=== PATIENT | female | born 1950 | race Caucasian/White ===

== ENCOUNTER → 2016-07-28 16:32 | Outpatient (CLI) | payer MEDICARE ==
[2013-09-03 09:36] VITALS: BMI 23.2
[~2016-07-28 16:32] MED LIST: ATENOLOL25 MG NG; BENADRYL25 MG PO; CALCIUM 600+D T1 TA1 PO; ESTRACE1 MG PO; FEXOFENADINE HC60 MG PO; FLUTICASONE PRO16 GM NS; GEMFIBROZIL600 MG PO; MULTI-DAY VITAM1 TAB PO; NEURONTIN 300300 MG PO; NORCO 10/325 TA1 TA1 PO; NORCO 5/325 TAB1 TA1 PO; PRAVACHOL40 MG PO; PRINIVIL20 MG PO; PROTONIX40 MG PO; TRIGLIDE160 MG PO
[2016-07-28 18:51] LABS: LDL-HDL RATIO 5.3 ratio (1.5-3.5)
== END | disposition home or self-care (01) ==
LOC: D.LABREF 16:32
PROVIDERS: Internal Medicine Cardiovascular Disease
DX: E78.5 Hyperlipidemia, unspecified (principal)

== ENCOUNTER → 2016-08-23 07:39 | Outpatient (CLI) | payer MEDICARE ==
[2013-09-03 09:36] VITALS: BMI 23.2
== END | disposition home or self-care (01) ==
LOC: D.CT 07:39
DX: R51 Headache (principal)

== ENCOUNTER 2016-10-08 08:53 | Emergency (ER) | payer MEDICARE ==
[2013-09-03 09:36] VITALS: BMI 23.2
[2016-10-08 10:57] LABS: APPEARANCE HAZY (CLEAR); BILIRUBIN NEGATIVE (NEGATIVE); COLOR YELLOW (YELLOW); GLUCOSE NEGATIVE (NEGATIVE); KETONE NEGATIVE (NEGATIVE); LEUKOCYTE ESTERASE NEGATIVE (NEGATIVE); NITRITE NEGATIVE (NEGATIVE); PROTEIN NEGATIVE (NEGATIVE); UROBILINOGEN NORMAL (NORMAL)
[2016-10-08 11:20] LABS: BASOPHILS 0.1 % (0-2); EOSINOPHILS 0.3 % (0-7); HEMATOCRIT 39.4 % (36.0-48.0); IMMATURE GRANULOCYTES 0.5 % (0-5); LYMPHOCYTES 8.9 % (15-50); MCH 30.3 pg (26.0-34.0); MCV 91.8 fL (80.0-100.0); MEAN PLATELET VOLUME 9.3 fL (7.4-10.4); MONOCYTES 6.8 % (2-11); NEUTROPHILS 83.4 % (40-80); PLATELET COUNT 192 10x3/uL (130-400); RBC 4.29 10x6/uL (4.00-5.40); WBC 15.5 10x3/uL (4.8-10.8)
[2016-10-08 11:30] LABS: APTT 25.6 SECONDS (22.8-39.4); INR 1.06 (0.85-1.17); PROTIME 13.7 SECONDS (11.6-15.0)
[2016-10-08 11:31] LABS: D-DIMER-QUANTITATIVE 0.63 ug/mLFEU (0.20-0.54)
[2016-10-08 11:37] LABS: ALKALINE PHOSPHATASE 30 U/L (46-116); ALT (SGPT) 15 U/L (10-68); CALC OSMOLALITY 272 mosm/kg (275-300); CALCIUM 8.1 mg/dL (8.5-10.1); CARBON DIOXIDE 23.4 mmol/L (21.0-32.0); CHLORIDE - SERUM 105 mmol/L (98-107); CREATININE - SERUM 1.2 mg/dL (0.6-1.3); GLUCOSE 93 mg/dL (74-106); PROTEIN - SERUM 6.2 g/dL (6.4-8.2); SODIUM 137 mmol/L (136-145); UREA NITROGEN 11 mg/dL (7-18); eGFR NON AFRICAN AMERICAN 47 mL/min (90-120)
[2016-10-08 11:45] LABS: CREATINE KINASE 32 UL (21-215); TROPONIN-I < 0.017 ng/mL (0.000-0.060)
== END 2016-10-08 14:16 | disposition home or self-care (01) ==
LOC: D.ER 08:53
PROVIDERS: Emergency Medicine
DX: R05 Cough (principal); J20.9 Acute bronchitis, unspecified; R07.9 Chest pain, unspecified; I10 Essential (primary) hypertension; E78.5 Hyperlipidemia, unspecified

== ENCOUNTER → 2016-11-01 16:05 | Outpatient (CLI) | payer MEDICARE ==
[2013-09-03 09:36] VITALS: BMI 23.2
== END | disposition home or self-care (01) ==
LOC: D.MAMMO 10-11 08:45
DX: Z12.31 Encounter for screening mammogram for malignant neoplasm of breast (principal)

== ENCOUNTER → 2016-12-08 14:45 | Outpatient (CLI) | payer MEDICARE ==
[2013-09-03 09:36] VITALS: BMI 23.2
== END | disposition home or self-care (01) ==
LOC: D.MAMMO 09:30
DX: N63 Unspecified lump in breast (principal)

== ENCOUNTER 2018-09-18 08:43 | Emergency (ER) | payer MEDICARE ==
[~2018-09-18] VITALS: Ht 160 cm; Wt 59.5 kg
[2018-09-18 08:48] VITALS: Ht 160 cm; Wt 59.5 kg
[2018-09-18] MEDS ORDERED: TENORMIN25 MG PO (08:51)
[2018-09-18] MEDS ORDERED: FENOFIBRATE160 MG PO (08:51)
[2018-09-18] MEDS ORDERED: ESTRACE2 MG PO (08:51)
[2018-09-18] MEDS ORDERED: ZYRTEC10 MG PO (08:52)
[2018-09-18] MEDS ORDERED: STERAPRED DS 1010 MG PO (09:28)
[2018-09-18 09:58] VITALS: BP 153/46
== END 2018-09-18 09:59 | disposition home or self-care (01) ==
LOC: D.ER 08:43
DX: T42.6X5A Adverse effect of other antiepileptic and sedative-hypnotic drugs, initial encounter (principal); Y92.019 Unspecified place in single-family (private) house as the place of occurrence of the external cause

== ENCOUNTER 2018-09-22 09:00 | Outpatient (CLI) | payer MEDICARE ==
[2018-09-18 08:48] VITALS: BMI 23.2
[~2018-09-22 09:00] MED LIST changes: +ESTRACE2 MG PO; +FENOFIBRATE160 MG PO; +STERAPRED DS 1010 MG PO; +TENORMIN25 MG PO; +ZYRTEC10 MG PO
== END 2018-09-22 10:00 | disposition home or self-care (01) ==
LOC: D.MAMMO
PROVIDERS: ATTEND Family Medicine
DX: N64.4 Mastodynia (principal)

== ENCOUNTER 2018-09-25 11:33 | Emergency (ER) | payer MEDICARE ==
[~2018-09-25] VITALS: Ht 160 cm; Wt 61.4 kg
[2018-09-25 12:10] VITALS: Ht 160 cm; Wt 61.4 kg
[2018-09-25 13:23] LABS: BASOPHILS 0 % (0-2); EOSINOPHILS 0 % (0-7); HEMATOCRIT 40.3 % (36.0-48.0); IMMATURE GRANULOCYTES 0.5 % (0-5); LYMPHOCYTES 10.9 % (15-50); MCH 31.2 pg (26.0-34.0); MCHC 34.7 g/dL (31.0-37.0); MCV 89.8 fL (80.0-100.0); MEAN PLATELET VOLUME 9.3 fL (7.4-10.4); MONOCYTES 8.8 % (2-11); NEUTROPHILS 79.8 % (40-80); RBC 4.49 10x6/uL (4.00-5.40); RDW 14.1 % (11.5-14.5); WBC 11.6 10x3/uL (4.8-10.8)
[2018-09-25 13:24] LABS: PLATELET COUNT 263 10x3/uL (130-400)
[2018-09-25 13:49] LABS: ALBUMIN 3.6 g/dL (3.4-5.0); ANION GAP 12.4 mmol/L (8-16); BILIRUBIN - TOTAL 0.55 mg/dL (0.2-1.3); CALCIUM 9.2 mg/dL (8.5-10.1); CARBON DIOXIDE 26.7 mmol/L (21.0-32.0); POTASSIUM - SERUM 4.1 mmol/L (3.5-5.1); PROTEIN - SERUM 6.6 g/dL (6.4-8.2)
[2018-09-25 14:12] VITALS: BP 184/62
== END 2018-09-25 14:13 | disposition home or self-care (01) ==
LOC: D.ER 11:33
PROVIDERS: Family Medicine
DX: L29.9 Pruritus, unspecified (principal); M25.561 Pain in right knee; Z96.651 Presence of right artificial knee joint

== ENCOUNTER 2019-02-10 18:56 | Inpatient (IN) | payer MEDICARE ==
[~2019-02-10] VITALS: Ht 160 cm; Wt 49.4 kg
[2019-02-10] MEDS ORDERED: STOOL SOFTENER100 M1 PO (19:07)
[2019-02-10 19:30] LABS: APPEARANCE CLEAR (CLEAR); BILIRUBIN NEGATIVE (NEGATIVE); COLOR YELLOW (YELLOW); GLUCOSE NEGATIVE (NEGATIVE); KETONE NEGATIVE (NEGATIVE); NITRITE NEGATIVE (NEGATIVE); PROTEIN NEGATIVE (NEGATIVE); SPECIFIC GRAVITY 1.015 (1.005-1.020)
[2019-02-10 19:35] LABS: BASOPHILS 0.3 % (0-2); EOSINOPHILS 1.5 % (0-7); HEMATOCRIT 40.8 % (36.0-48.0); HEMOGLOBIN 13.3 g/dL (12-16); IMMATURE GRANULOCYTES 0.2 % (0-5); LYMPHOCYTES 40.9 % (15-50); MCH 30.1 pg (26.0-34.0); MCHC 32.6 g/dL (31.0-37.0); MCV 92.3 fL (80.0-100.0); MEAN PLATELET VOLUME 10.4 fL (7.4-10.4); MONOCYTES 7.7 % (2-11); NEUTROPHILS 49.4 % (40-80); PLATELET COUNT 218 10x3/uL (130-400); RBC 4.42 10x6/uL (4.00-5.40); WBC 5.9 10x3/uL (4.8-10.8)
[2019-02-10 19:54] LABS: ALBUMIN 3.4 g/dL (3.4-5.0); ALKALINE PHOSPHATASE 86 U/L (46-116); ALT (SGPT) 97 U/L (10-68); BILIRUBIN - TOTAL 0.42 mg/dL (0.2-1.3); CALC OSMOLALITY 285 mosm/kg (275-300); CALCIUM 9.3 mg/dL (8.5-10.1); CHLORIDE - SERUM 107 mmol/L (98-107); CREATININE - SERUM 0.9 mg/dL (0.6-1.3); GLUCOSE 98 mg/dL (74-106); POTASSIUM - SERUM 3.9 mmol/L (3.5-5.1); PROTEIN - SERUM 6.2 g/dL (6.4-8.2); SODIUM 144 mmol/L (136-145); UREA NITROGEN 11 mg/dL (7-18); eGFR NON AFRICAN AMERICAN 66 mL/min (90-120)
[2019-02-10 19:59] LABS: LIPASE 10299 U/L (73-393); TROPONIN-I < 0.017 ng/mL (0.000-0.060)
[2019-02-10 20:02] LABS: AMYLASE - SERUM 1226 U/L (25-115)
[2019-02-10 21:00] VITALS: BP 141/48
--- NOTE | 2019-02-11 00:15 | NUR ---
PT ARRIVED TO FLOOR VIA WHEELCHAIR. ASSISTED PT IN AMBULATING TO BED. PT HAS GENERALIZED WEAKNESS. UNABLE TO WALK LONG DISTANCES D/T NEUROPATHY. STATES SHE IS SEEING NEUROLOGIST AT [facility]. PAIN IN ABD 12/09. TENDER TO TOUCH. BOWEL SOUNDS HYPERACTIVE. WILL GIVE SCHEDULED PAIN MED ORDERED, SEE MAR. IV RIGHT FA INFUSING NS @ 150. INFORMED PT SHE IS NPO FOR POSSIBLE SX, VERBALIZED UNDERSTANDING. DENIES OTHER NEEDS AT THIS TIME. MARIAN ON. CL IN REACH, WILL CTM
[2019-02-11 01:05] VITALS: BMI 19.3
[2019-02-11 04:15] VITALS: BP 114/47
[2019-02-11 05:35] LABS: APTT 23.6 SECONDS (22.8-39.4); INR 1.07 (0.85-1.17); PROTIME 13.4 SECONDS (11.6-15.0)
[2019-02-11 06:41] LABS: ALBUMIN 2.6 g/dL (3.4-5.0); ALKALINE PHOSPHATASE 59 U/L (46-116); BILIRUBIN - TOTAL 0.29 mg/dL (0.2-1.3); CALC OSMOLALITY 289 mosm/kg (275-300); CALCIUM 8.1 mg/dL (8.5-10.1); CARBON DIOXIDE 22.9 mmol/L (21.0-32.0); CHLORIDE - SERUM 113 mmol/L (98-107); GLUCOSE 79 mg/dL (74-106); POTASSIUM - SERUM 4.1 mmol/L (3.5-5.1); PROTEIN - SERUM 4.9 g/dL (6.4-8.2); SODIUM 147 mmol/L (136-145); UREA NITROGEN 10 mg/dL (7-18)
[2019-02-11 06:43] LABS: ALT (SGPT) 60 U/L (10-68); CREATININE - SERUM 0.6 mg/dL (0.6-1.3); LIPASE 2583 U/L (73-393); eGFR NON AFRICAN AMERICAN > 90 mL/min (90-120)
[2019-02-11 06:44] LABS: AMYLASE - SERUM 405 U/L (25-115)
[2019-02-11 08:54] VITALS: BP 119/36
--- NOTE | 2019-02-11 10:15 | NUR ---
PATIENT AWAKE LAYING ON BACK IN BED WATCHING TV. WANTS TO KNOW WHEN THE SURGERY WILL BE. I INFORMED HER THAT THE SURGEON WILL HAVE TO SEE HER FIRST AND THEN WE WILL FIND OUT. CL IN REACH. ROBYN.
[2019-02-11 10:58] LABS: BASOPHILS 0.5 % (0-2); HEMATOCRIT 33.7 % (36.0-48.0); HEMOGLOBIN 10.7 g/dL (12-16); IMMATURE GRANULOCYTES 0.3 % (0-5); LYMPHOCYTES 33.3 % (15-50); MCH 29.5 pg (26.0-34.0); MCHC 31.8 g/dL (31.0-37.0); MCV 92.8 fL (80.0-100.0); MEAN PLATELET VOLUME 10.1 fL (7.4-10.4); MONOCYTES 9.3 % (2-11); NEUTROPHILS 54.6 % (40-80); RBC 3.63 10x6/uL (4.00-5.40)
[2019-02-11 11:09] LABS: PLATELET COUNT 146 10x3/uL (130-400)
[2019-02-11 11:22] LABS: CKMB 0.1 U/L (0.0-3.6); CREATINE KINASE 19 UL (21-215); TROPONIN-I < 0.017 ng/mL (0.000-0.060)
[2019-02-11 13:13] VITALS: BP 130/34
--- NOTE | 2019-02-11 13:51 | NUR ---
PATIENT IN MRI.
[2019-02-11 16:36] VITALS: BP 118/39
[2019-02-11 17:01] LABS: CKMB 0.5 U/L (0.0-3.6); CREATINE KINASE 21 UL (21-215)
[2019-02-11 17:20] LABS: TROPONIN-I < 0.017 ng/mL (0.000-0.060)
[2019-02-11 20:31] VITALS: BP 135/45
[2019-02-11 23:31] LABS: CKMB 0.4 U/L (0.0-3.6); CREATINE KINASE 21 UL (21-215)
[2019-02-11 23:33] LABS: TROPONIN-I < 0.017 ng/mL (0.000-0.060)
[2019-02-12] VITALS (11 sets, daily range): BP systolic 123–151; BP diastolic 50–74; Ht 160 cm; Wt 49.4 kg
[2019-02-12 05:43] LABS: BASOPHILS 0.5 % (0-2); EOSINOPHILS 4.7 % (0-7); HEMATOCRIT 33.8 % (36.0-48.0); HEMOGLOBIN 10.8 g/dL (12-16); LYMPHOCYTES 34.3 % (15-50); MCH 29.6 pg (26.0-34.0); MCV 92.6 fL (80.0-100.0); MEAN PLATELET VOLUME 10.9 fL (7.4-10.4); MONOCYTES 10.2 % (2-11); NEUTROPHILS 50.3 % (40-80); PLATELET COUNT 164 10x3/uL (130-400); RBC 3.65 10x6/uL (4.00-5.40); RDW 13.9 % (11.5-14.5)
[2019-02-12 05:54] LABS: ALBUMIN 2.4 g/dL (3.4-5.0); ALKALINE PHOSPHATASE 48 U/L (46-116); BILIRUBIN - TOTAL 0.26 mg/dL (0.2-1.3); CALCIUM 8.4 mg/dL (8.5-10.1); CARBON DIOXIDE 28.2 mmol/L (21.0-32.0); CHLORIDE - SERUM 110 mmol/L (98-107); GLUCOSE 108 mg/dL (74-106); LIPASE 219 U/L (73-393); MAGNESIUM - SERUM 1.7 mg/dL (1.8-2.4); POTASSIUM - SERUM 4.4 mmol/L (3.5-5.1); PROTEIN - SERUM 4.8 g/dL (6.4-8.2); SODIUM 142 mmol/L (136-145)
[2019-02-12 05:56] LABS: ALT (SGPT) 42 U/L (10-68); AMYLASE - SERUM 88 U/L (25-115); CALC OSMOLALITY 280 mosm/kg (275-300); CREATININE - SERUM 0.8 mg/dL (0.6-1.3); UREA NITROGEN 5 mg/dL (7-18); eGFR NON AFRICAN AMERICAN 75 mL/min (90-120)
--- NOTE | 2019-02-12 07:45 | NUR ---
PT RESTING IN BED RESP EVEN AND UNLABORED. REPORTS PAIN 6/10 AT THIS TIME. DISCUSSED WITH PT NEXT TIME PAIN MEDICATIONS DUE. PT VOICES UNDERSTANDING. IV TO RIGHT FOREARM WITH D5LR WITH 20MEQ KCL @ 125ML/HR, PROCALAMINE @ 50ML/HR INFUSING VIA PUMP. SITE WITHOUT REDNESS OR EDEMA. VOICES BEING NPO SINCE MIDNIGHT FOR UPCOMING PROCEDURE. DENIES FURTHER NEEDS AT THIS TIME. CL WITHIN REACH. ENCOURAGED TO CALL WITH NEEDS. CONTINUE POC
[2019-02-12] MEDS ORDERED: HYDROCODON-ACE1 EAC7 PO (12:30)
--- NOTE | 2019-02-12 13:27 | NUR ---
PT RECIEVED FROM RECOVERY VIA BED. ALERT AND ORIENTED. RESP EVEN AND UNLABORED. PT DENIES PAIN AT THIS TIME. 4 LAP SITES TO ABDOMEN C/D/I. CL WITHIN REACH. WILL CONTINUE TO MONITOR.
--- NOTE | 2019-02-12 19:25 | NUR ---
LYING IN BED. ALERT AND ORIENTED X4. C/O PAIN IN ABD 4. HAS SCHEDULED DILAUDID FOR 2099. LAP SITES X4 NOTED TO ABD WITH STERI STRIPS. OLD DRAINAGE NOTED TO UMBILICAL REGION. RESP NONLABORED. SKIN IS PALE. D5LR WITH 20 MEQ KCL INFUSING @ 75 MLHR IN RT FOREARM. SR ELEVATED X2. CL IN REACH.
--- NOTE | 2019-02-13 00:15 | NUR ---
IV INFILTRATED IN RT FOREARM. IV CATH REMOVED. MINIMAL SWELLING NOTED. ATTEMPTED X1 TO RESTART WITH 22G WITHOUT SUCCESS.
[2019-02-13 00:40] VITALS: BP 140/64
--- NOTE | 2019-02-13 01:26 | NUR ---
IV RESTARTED WITH 22G TO RT WRIST AT THIS TIME. PT SILVIA WELL. DILAUDID SCHEDULED DOSE GIVEN AT THIS TIME.
[2019-02-13 04:00] VITALS: BP 148/56
[2019-02-13 05:39] LABS: BASOPHILS 0.2 % (0-2); EOSINOPHILS 0.1 % (0-7); HEMOGLOBIN 11.2 g/dL (12-16); IMMATURE GRANULOCYTES 0.1 % (0-5); LYMPHOCYTES 12.4 % (15-50); MCH 29.7 pg (26.0-34.0); MCHC 32.9 g/dL (31.0-37.0); MEAN PLATELET VOLUME 10.8 fL (7.4-10.4); MONOCYTES 7.3 % (2-11); NEUTROPHILS 79.9 % (40-80); PLATELET COUNT 195 10x3/uL (130-400); RBC 3.77 10x6/uL (4.00-5.40); RDW 13.6 % (11.5-14.5)
[2019-02-13 05:43] LABS: MCV 90.2 fL (80.0-100.0); WBC 9.1 10x3/uL (4.8-10.8)
[2019-02-13 05:47] LABS: ALBUMIN 2.7 g/dL (3.4-5.0); ALKALINE PHOSPHATASE 90 U/L (46-116); BILIRUBIN - TOTAL 1.79 mg/dL (0.2-1.3); CALC OSMOLALITY 282 mosm/kg (275-300); CALCIUM 8.9 mg/dL (8.5-10.1); CARBON DIOXIDE 26.4 mmol/L (21.0-32.0); CHLORIDE - SERUM 109 mmol/L (98-107); CREATININE - SERUM 0.6 mg/dL (0.6-1.3); GLUCOSE 125 mg/dL (74-106); MAGNESIUM - SERUM 1.9 mg/dL (1.8-2.4); POTASSIUM - SERUM 4.3 mmol/L (3.5-5.1); SODIUM 143 mmol/L (136-145); UREA NITROGEN 5 mg/dL (7-18); eGFR NON AFRICAN AMERICAN > 90 mL/min (90-120)
[2019-02-13 05:50] LABS: ALT (SGPT) 124 U/L (10-68); LIPASE 7829 U/L (73-393)
[2019-02-13 05:51] LABS: AMYLASE - SERUM 779 U/L (25-115)
--- NOTE | 2019-02-13 06:04 | NUR ---
NOTIFIED RADHA GOODMAN OF [facility]. NO NEW ORDERS. STATES HE WILL NOTIFY RADHA VALENCIA THIS AM.
--- NOTE | 2019-02-13 07:13 | NUR ---
ALERT AND ORIENTED. LUNGS CLEAR BILATERALLY IN ALL CARBALLO. HEART SOUNDS S1 AND S2 HEARD IN ALL CARBALLO. BOWEL SOUNDS ACTIVE X 4. LAP SITES X 4 C/D/I. SKIN OTHERWISE INTACT WITHOUT REDNESS. IV TO RIGHT WRIST PATENT WITHOUT REDNESS. DENIES PAIN. DENIES NEEDS. BED LOW. CALL SHEN AND PERSONAL ITEMS IN REACH. WILL CONTINUE TO MONITOR.
[2019-02-13 08:29] VITALS: BP 143/67
--- NOTE | 2019-02-13 08:30 | NUR ---
PATIENT STATES IS DISCHARGING TODAY. EDUCATION PROVIDED ON NEED TO GET UP AND OOB BEFORE LEAVING. VERBALIZED UNDERSTANDING.
--- NOTE | 2019-02-13 12:00 | NUR ---
RESTING IN BED. REQUESTED AND GIVEN PRN ZOFRAN FOR NAUSEA. STATES PAIN 8/10. GIVEN SCHEDULED DILAUDID. REQUESTED SCDS BE REMOVED SINCE GETTING LOVENOX NOW. DENIES FURTHER NEEDS. WILL CONTINUE TO MONITOR.
[2019-02-13 12:38] VITALS: BP 128/74
--- NOTE | 2019-02-13 13:26 | NUR ---
SPOKE WITH DR HOBBS WHO STATES START CPM AFTER DINNER AT 50 FLEXION AND INCREASE 5-10 QDAY TOLERATION. EXTENSION AT ZERO.
--- NOTE | 2019-02-13 14:23 | NUR ---
RESTING IN BED. DENIES NEEDS. WILL CONTINUE TO MONITOR.
--- NOTE | 2019-02-13 14:37 | MORECARE ---
CASE MANAGEMENT DISCHARGE SUMMARY PATIENT: ALEK GASCA UNIT: [id number] ADM DATE: 02/10/19 AGE: 68 : 48 SEX: F ROOM/BED: D.9138 AUTHOR: [email or web address] PHYSICIAN: REFERRING PHYSICIAN: ALVARO WATERS MD DATE OF SERVICE: 02/13/19 Discharge Plan Patient Name: ALEK GASCA Facility: [facility]:[place] : 1950 Planned Disposition: Home Health Service Anticipated Discharge Date: Discharge Date: Expected LOS: Initial Reviewer: [id number] Initial Review Date: 02/10/2019 Generated: 02/13/19 3:37 pm DCPIA - Discharge Planning Initial Assessment Updated by [email or web address]: Dolores Garibay on 02/13/19 2:34 pm * Is the patient Alert and Oriented? Yes * How many steps to enter\exit or inside your home? * PCP PRIYA * Pharmacy [facility] * Preadmission Environment Home Alone * ADLs Partial Dependent * Partial ADLs (Assistance needed) Bathing * Equipment Elevated [place] Seat Rolling Walker Shower Chair * List name and contact numbers for known caregivers / representatives who currently or will assist patient after discharge: MICHELLE (BROTHER) [phone] * Verbal permission to speak to the caregivers and representatives has been obtained from the patient. N/A * Community resources currently utilized Home Health * Please name any agencies selected above. [facility]ALKING WITH [facility] * Additional services required to return to the preadmission environment? Yes * Can the patient safely return to the preadmission environment? Yes * Has this patient been hospitalized within the prior 30 days at any hospital? Yes Coverage Notice Reviewer: [email or web address] Silvia Garibay Notice Issued Date-Time: 02/13/2019 14:15 Notice Type: IM Discharge Notice Notice Delivered To: Patient Relationship to Patient: Battery Hand Name: Delivery Method: HAND - Hand Delivered Adrianne Days: Prior Verbal Notification: Recipient Understood Notice: Yes Recipient Signature: Yes Med Rec Note Co-signed by Attending: Coverage Notice Comment: Reviewer: [id number] Silvia Garibay Notice Issued Date-Time: 02/13/2019 14:15 Notice Type: Patient Choice Letter Notice Delivered To: Patient Relationship to Patient: Battery Hand Name: Delivery Method: HAND - Hand Delivered Adrianne Days: Prior Verbal Notification: Recipient Understood Notice: Yes Recipient Signature: Yes Med Rec Note Co-signed by Attending: Coverage Notice Comment: SHERICE FOR ANK[facility] Patient Name: ALEK GASCA Page 15106 at 1437 All edits/amendments must be made on the electronic document DICTATION DATE: 02/13/191436 SOFTWARE TEST TECHNICIAN: CONSTANTINE 02/13/191436 RPT#: [id number] DC DATE: STATUS: ADM IN [facility] [address] [place] [address] END OF REPORT
--- NOTE | 2019-02-13 14:45 | MORECARE ---
CASE MANAGEMENT DISCHARGE SUMMARY PATIENT: ALEK GASCA UNIT: [id number] ADM DATE: 02/10/19 AGE: 68 : 48 SEX: F ROOM/BED: D.8499 AUTHOR: JOSE L GRULLON PHYSICIAN: REFERRING PHYSICIAN: ALVARO WATERS MD DATE OF SERVICE: 02/13/19 Discharge Plan Patient Name: ALEK GASCA Facility: [facility]:[place] : 1950 Planned Disposition: Home Health Service Anticipated Discharge Date: Discharge Date: Expected LOS: Initial Reviewer: [email or web address] Initial Review Date: 02/10/2019 Generated: 02/13/19 3:44 pm Comments DCP- Discharge Planning Updated by [email or web address]: Dolores Garibay on 02/13/19 1:[address] Patient Name: ALEK GASCA Admission Status: ER Accout number: [id number] Admission Date: 02-10-2019 : 1950 Admission Diagnosis: Attending: ALVARO WATERS Current LOS: 3 Anticipated DC Date: Planned Disposition: Home Health Service Primary Insurance: MEDICARE A & B Discharge Planning Comments: CM met with patient to complete initial dc planning assessment. CM educated patient on the CM role and verbal consent given by patient to complete assessment. Patient lives at home by herself. She stated that her neighbor comes over and helps with her baths. At discharge patient plans to return home and feels this is a safe discharge. Her brother will be her pizza delivery driver home. CM discussed availability of home health, rehab services, and medical equipment. She is current with [facility]. She has a walker, elevated toilet seat and shower chair at home. She also stated that she is currently talking with [facility] to get help. [facility] served and explained and SHERICE with [facility] signed and placed in chart. Patient denied known discharge needs at this time. CM will continue to follow and will assist as needed with dc plans/needs. Development Vice President: Dolores Garibay DCPIA - Discharge Planning Initial Assessment Updated by [email or web address]: Dolores Garibay on 02/13/19 2:34 pm * Is the patient Alert and Oriented? Yes * How many steps to enter\exit or inside your home? * PCP PRIYA * Pharmacy [facility] * Preadmission Environment Home Alone * ADLs Partial Dependent * Partial ADLs (Assistance needed) Bathing * Equipment Elevated [place] Seat Rolling Walker Shower Chair * List name and contact numbers for known caregivers / representatives who currently or will assist patient after discharge: MICHELLE (BROTHER) [phone] * Verbal permission to speak to the caregivers and representatives has been obtained from the patient. N/A * Community resources currently utilized Home Health * Please name any agencies selected above. [facility] TALKING WITH [facility] * Additional services required to return to the preadmission environment? Yes * Can the patient safely return to the preadmission environment? Yes * Has this patient been hospitalized within the prior 30 days at any hospital? Yes Coverage Notice Reviewer: [email or web address] Silvia Garibay Notice Issued Date-Time: 02/13/2019 14:15 Notice Type: IM Discharge Notice Notice Delivered To: Patient Relationship to Patient: Review Rn Name: Delivery Method: HAND - Hand Delivered Adrianne Days: Prior Verbal Notification: Recipient Understood Notice: Yes Recipient Signature: Yes Med Rec Note Co-signed by Attending: Coverage Notice Comment: Reviewer: [id number] Silvia Garibay Notice Issued Date-Time: 02/13/2019 14:15 Notice Type: Patient Choice Letter Notice Delivered To: Patient Relationship to Patient: Review Rn Name: Delivery Method: HAND - Hand Delivered Adrianne Days: Prior Verbal Notification: Recipient Understood Notice: Yes Recipient Signature: Yes Med Rec Note Co-signed by Attending: Coverage Notice Comment: SHERICE FOR ANKIT Last DP export: 02/13/19 1:37 Patient Name: ALEK GASCA Page 23217 at 1445 All edits/amendments must be made on the electronic document DICTATION DATE: 02/13/191443 BLANKET CUTTER HAND: CONSTANTINE 02/13/19 1444 RPT#: [id number] DC DATE: STATUS: ADM IN [facility] [address] [place] [address] END OF REPORT
--- NOTE | 2019-02-13 15:25 | NUR ---
RESTING IN BED. DENIES NEEDS. WILL CONTINUE TO MONITOR.
--- NOTE | 2019-02-13 16:27 | NUR ---
BLISTER PACKAGING MACHINE OPERATOR INITIATED PER REQUEST.
--- NOTE | 2019-02-13 18:38 | NUR ---
RESTING IN BED. REQUESTED AND GIVEN BEDPAN. REQUESTED AND GIVEN PRN NORCO. DENIES FURTHER NEEDS. BED LOW. CALL SHEN AND PERSONAL ITEMS IN REACH.
--- NOTE | 2019-02-13 19:50 | NUR ---
LYING IN BED. ASSISTED ONTO BED GOMEZ TO VOID. DENIES PAIN. LAP SITE X4 NOTED TO ABD WITH STERISTRIPS INTACT. PASSING FLATUS, BUT NO BM. BRUISES NOTED TO BUE. SCDS IN USE BILAT. STATES SHE HAS BEEN NAUSEATED TODAY. D5LR WITH 20 MEQ KCL INFUSING @ 75 MLHR IN RT WRIST WITHOUT DIFF. RESP EVEN AND NONLABORED. NO DISTRESS. CL IN REACH.
[2019-02-13 21:27] VITALS: BP 140/61
--- NOTE | 2019-02-14 00:45 | NUR ---
HASNT BEEN ASLEEP YET TONIGHT. ON BEDPAN FREQUENTLY TO VOID. CL IN REACH.
[2019-02-14 01:14] VITALS: BP 130/70
[2019-02-14 05:15] VITALS: BP 154/74
[2019-02-14 05:31] LABS: BASOPHILS 0.2 % (0-2); IMMATURE GRANULOCYTES 0.2 % (0-5); LYMPHOCYTES 20.1 % (15-50); MCH 29.6 pg (26.0-34.0); MCHC 32.4 g/dL (31.0-37.0); MCV 91.6 fL (80.0-100.0); MEAN PLATELET VOLUME 10.5 fL (7.4-10.4); MONOCYTES 10.9 % (2-11); NEUTROPHILS 66.6 % (40-80); PLATELET COUNT 181 10x3/uL (130-400); RBC 3.71 10x6/uL (4.00-5.40); RDW 14.2 % (11.5-14.5)
[2019-02-14 05:40] LABS: WBC 6.1 10x3/uL (4.8-10.8)
[2019-02-14 06:11] LABS: ALBUMIN 2.4 g/dL (3.4-5.0); ALKALINE PHOSPHATASE 105 U/L (46-116); BILIRUBIN - TOTAL 2.17 mg/dL (0.2-1.3); CALC OSMOLALITY 276 mosm/kg (275-300); CALCIUM 8.1 mg/dL (8.5-10.1); CARBON DIOXIDE 27.5 mmol/L (21.0-32.0); CHLORIDE - SERUM 108 mmol/L (98-107); CREATININE - SERUM 0.7 mg/dL (0.6-1.3); GLUCOSE 81 mg/dL (74-106); MAGNESIUM - SERUM 1.7 mg/dL (1.8-2.4); POTASSIUM - SERUM 4.2 mmol/L (3.5-5.1); PROTEIN - SERUM 4.6 g/dL (6.4-8.2); SODIUM 141 mmol/L (136-145); UREA NITROGEN 4 mg/dL (7-18); eGFR NON AFRICAN AMERICAN 88 mL/min (90-120)
[2019-02-14 06:59] LABS: ALT (SGPT) 221 U/L (10-68); AMYLASE - SERUM 357 U/L (25-115); LIPASE 2684 U/L (73-393)
--- NOTE | 2019-02-14 08:30 | NUR ---
PATIENT ASSISTED WITH BEDPAN. NO FURTHER NEEDS AT THIS TIME. CL IN REACH. WCTM
[2019-02-14 09:04] VITALS: BP 111/57
[2019-02-14 10:11] LABS: INR 1.32 (0.85-1.17); PROTIME 15.9 SECONDS (11.6-15.0)
--- NOTE | 2019-02-14 11:28 | NUR ---
PATIENT HAD A NOSEBLEED. RESOLVED ON ITS OWN HOLDING PRESSURE. CL IN REACH. NO CONCERNS AT THIS TIME.
--- NOTE | 2019-02-14 11:29 | MORECARE ---
CASE MANAGEMENT DISCHARGE SUMMARY PATIENT: ALEK GASCA UNIT: [id number] ADM DATE: 02/10/19 AGE: 68 : 48 SEX: F ROOM/BED: D.3855 AUTHOR: JOSE L GRULLON PHYSICIAN: REFERRING PHYSICIAN: ALVARO WATERS MD DATE OF SERVICE: 02/14/19 Discharge Plan Patient Name: ALEK GASCA Facility: [facility]:[place] : 1950 Planned Disposition: Home Health Service Anticipated Discharge Date: Discharge Date: Expected LOS: Initial Reviewer: [id number] Initial Review Date: 02/10/2019 Generated: 02/14/19 12:28 pm Comments DCP- Discharge Planning Updated by [id number]: Dolores Garibay on 02/14/19 10:[address] Patient discharging home today. Patient is current with [facility]. Will fax clinicals to them. CM to follow and assist as needed DCP- Discharge Planning Updated by [id number]: Dolores Garibay on 02/13/19 1:[address] Patient Name: ALEK GASCA Admission Status: ER Accout number: [id number] Admission Date: 02-10-2019 : 1950 Admission Diagnosis: Attending: ALVARO WATERS Current LOS: 3 Anticipated DC Date: Planned Disposition: Home Health Service Primary Insurance: MEDICARE A & B Discharge Planning Comments: CM met with patient to complete initial dc planning assessment. CM educated patient on the CM role and verbal consent given by patient to complete assessment. Patient lives at home by herself. She stated that her neighbor comes over and helps with her baths. At discharge patient plans to return home and feels this is a safe discharge. Her brother will be her rental car ferry driver home. CM discussed availability of home health, rehab services, and medical equipment. She is current with [facility]. She has a walker, elevated toilet seat and shower chair at home. She also stated that she is currently talking with [facility] to get help. [facility] served and explained and SHERICE with [facility] signed and placed in chart. Patient denied known discharge needs at this time. CM will continue to follow and will assist as needed with dc plans/needs. Pedicurist: Dolores Garibay DCPIA - Discharge Planning Initial Assessment Updated by [email or web address]: Dolores Garibay on 02/13/19 2:34 pm * Is the patient Alert and Oriented? Yes * How many steps to enter\exit or inside your home? * PCP PRIYA * Pharmacy [facility] * Preadmission Environment Home Alone * ADLs Partial Dependent * Partial ADLs (Assistance needed) Bathing * Equipment Elevated [place] Seat Rolling Walker Shower Chair * List name and contact numbers for known caregivers / representatives who currently or will assist patient after discharge: MICHELLE (BROTHER) [phone] * Verbal permission to speak to the caregivers and representatives has been obtained from the patient. N/A * Community resources currently utilized Home Health * Please name any agencies selected above. [facility] TALKING WITH [facility] * Additional services required to return to the preadmission environment? Yes * Can the patient safely return to the preadmission environment? Yes * Has this patient been hospitalized within the prior 30 days at any hospital? Yes Coverage Notice Reviewer: [id number] Silvia Graibay Notice Issued Date-Time: 02/13/2019 14:15 Notice Type: IM Discharge Notice Notice Delivered To: Patient Relationship to Patient: Composition Molder Name: Delivery Method: HAND - Hand Delivered Adrianne Days: Prior Verbal Notification: Recipient Understood Notice: Yes Recipient Signature: Yes Med Rec Note Co-signed by Attending: Coverage Notice Comment: Reviewer: [id number] Silvia Garibay Notice Issued Date-Time: 02/13/2019 14:15 Notice Type: Patient Choice Letter Notice Delivered To: Patient Relationship to Patient: Composition Molder Name: Delivery Method: HAND - Hand Delivered Adrianne Days: Prior Verbal Notification: Recipient Understood Notice: Yes Recipient Signature: Yes Med Rec Note Co-signed by Attending: Coverage Notice Comment: SHERIEC FOR [facility] Last DP export: 02/13/19 1:45 Patient Name: ALEK GASCA Page 71216 at 1129 All edits/amendments must be made on the electronic document DICTATION DATE: 02/14/19 1128 PLAYER PIANO TECHNICIAN: CONSTANTINE 02/14/19 1128 RPT#: [id number] DC DATE: STATUS: ADM IN [facility] [address] [place] [address] END OF REPORT
[2019-02-14 12:46] VITALS: BP 140/58
--- NOTE | 2019-02-14 13:05 | MORECARE ---
CASE MANAGEMENT DISCHARGE SUMMARY PATIENT: ALEK GASCA UNIT: [id number] ADM DATE: 02/10/19 AGE: 68 : 46 SEX: F ROOM/BED: D.7033 AUTHOR: JOSE L GRULLON PHYSICIAN: REFERRING PHYSICIAN: ALVARO WATERS MD DATE OF SERVICE: 02/14/19 Discharge Plan Patient Name: ALEK GASCA Facility: [facility]:[place] : 1950 Planned Disposition: Home Health Service Anticipated Discharge Date: Discharge Date: Expected LOS: Initial Reviewer: [email or web address] Initial Review Date: 02/10/2019 Generated: 02/14/19 2:05 pm Comments DCP- Discharge Planning Updated by [email or web address]: Dolores Garibay on 02/14/19 10:[address] Patient discharging home today. Patient is current with [facility]. Will fax clinicals to them. CM to follow and assist as needed DCP- Discharge Planning Updated by [email or web address]: Dolores Garibay on 02/13/19 1:[address] Patient Name: ALEK GASCA Admission Status: ER Accout number: [id number] Admission Date: 02-10-2019 : 1950 Admission Diagnosis: Attending: ALVARO WATERS Current LOS: 3 Anticipated DC Date: Planned Disposition: Home Health Service Primary Insurance: MEDICARE A & B Discharge Planning Comments: CM met with patient to complete initial dc planning assessment. CM educated patient on the CM role and verbal consent given by patient to complete assessment. Patient lives at home by herself. She stated that her neighbor comes over and helps with her baths. At discharge patient plans to return home and feels this is a safe discharge. Her brother will be her entry level truck driver home. CM discussed availability of home health, rehab services, and medical equipment. She is current with [facility]. She has a walker, elevated toilet seat and shower chair at home. She also stated that she is currently talking with [facility] to get help. [facility] served and explained and SHERICE with [facility] signed and placed in chart. Patient denied known discharge needs at this time. CM will continue to follow and will assist as needed with dc plans/needs. Payroll Master: Dolores Garibay DCPIA - Discharge Planning Initial Assessment Updated by [id number]: Dolores Garibay on 02/13/19 2:34 pm * Is the patient Alert and Oriented? Yes * How many steps to enter\exit or inside your home? * PCP PRIYA * Pharmacy [facility] * Preadmission Environment Home Alone * ADLs Partial Dependent * Partial ADLs (Assistance needed) Bathing * Equipment Elevated [place] Seat Rolling Walker Shower Chair * List name and contact numbers for known caregivers / representatives who currently or will assist patient after discharge: MICHELLE (BROTHER) [phone] * Verbal permission to speak to the caregivers and representatives has been obtained from the patient. N/A * Community resources currently utilized Home Health * Please name any agencies selected above. [facility] TALKING WITH [facility] * Additional services required to return to the preadmission environment? Yes * Can the patient safely return to the preadmission environment? Yes * Has this patient been hospitalized within the prior 30 days at any hospital? Yes External Providers External Provider: [facility] Next Contact Date: Service Request Date: Service Type: Resolution: Reviewer: Comments: Coverage Notice Reviewer: [email or web address] Silvia Garibay Notice Issued Date-Time: 02/13/2019 14:15 Notice Type: IM Discharge Notice Notice Delivered To: Patient Relationship to Patient: Fire Support Man Name: Delivery Method: HAND - Hand Delivered Adrianne Days: Prior Verbal Notification: Recipient Understood Notice: Yes Recipient Signature: Yes Med Rec Note Co-signed by Attending: Coverage Notice Comment: Reviewer: [id number] - Dolores Garibay Notice Issued Date-Time: 02/13/2019 14:15 Notice Type: Patient Choice Letter Notice Delivered To: Patient Relationship to Patient: Fire Support Man Name: Delivery Method: HAND - Hand Delivered Adrianne Days: Prior Verbal Notification: Recipient Understood Notice: Yes Recipient Signature: Yes Med Rec Note Co-signed by Attending: Coverage Notice Comment: SHERICE FOR [facility] Last DP export: 02/14/19 10:29 Patient Name: ALEK GASCA Page 38479 at 1305 All edits/amendments must be made on the electronic document DICTATION DATE: 02/14/19 1305 SITECORE DEVELOPER: CONSTANTINE 02/14/19 1305 RPT#: [id number] DC DATE: STATUS: ADM IN [facility] [address] [place] [address] END OF REPORT
--- NOTE | 2019-02-14 13:41 | NUR ---
IV THERAPY REMOVED FROM RIGHT HAND. ASSISTED ON AND OFF BEDPAN. PAPERWORK FOR DISCHARGE READY. WAS GOING TO GO OVER. PT READY TO WALK WITH PATIENT AGAIN. WILL NOTIFY ME WHEN THEY ARE DONE.
--- NOTE | 2019-02-15 13:16 | MORECARE ---
CASE MANAGEMENT DISCHARGE SUMMARY PATIENT: ALEK GASCA UNIT: [id number] ADM DATE: 02/10/19 AGE: 68 : 46 SEX: F ROOM/BED: D.6742 AUTHOR: JOSE L GRULLON PHYSICIAN: REFERRING PHYSICIAN: ALAVRO WATERS MD DATE OF SERVICE: 02/15/19 Discharge Plan Patient Name: ALEK GASCA Facility: [facility]:[place] : 1950 Planned Disposition: Home Health Service Anticipated Discharge Date: Discharge Date: 02/14/2019 Expected LOS: 0 Initial Reviewer: [email or web address] Initial Review Date: 02/10/2019 Generated: 02/15/19 2:16 pm Comments DCP- Discharge Planning Updated by [email or web address]: Dolores Garibay on 02/14/19 10:[address] Patient discharging home today. Patient is current with [facility]. Will fax clinicals to them. CM to follow and assist as needed DCP- Discharge Planning Updated by [email or web address]: Dolores Garibay on 02/13/19 1:[address] Patient Name: ALEK GASCA Admission Status: ER Accout number: [id number] Admission Date: 02-10-2019 : 1950 Admission Diagnosis: Attending: ALVARO WATERS Current LOS: 3 Anticipated DC Date: Planned Disposition: Home Health Service Primary Insurance: MEDICARE A & B Discharge Planning Comments: CM met with patient to complete initial dc planning assessment. CM educated patient on the CM role and verbal consent given by patient to complete assessment. Patient lives at home by herself. She stated that her neighbor comes over and helps with her baths. At discharge patient plans to return home and feels this is a safe discharge. Her brother will be her after school driver home. CM discussed availability of home health, rehab services, and medical equipment. She is current with [facility]. She has a walker, elevated toilet seat and shower chair at home. She also stated that she is currently talking with [facility] to get help. [facility] served and explained and SHERICE with Ashley signed and placed in chart. Patient denied known discharge needs at this time. CM will continue to follow and will assist as needed with dc plans/needs. Technician Assistant: Dolores Garibay DCPIA - Discharge Planning Initial Assessment Updated by [email or web address]: Dolores Garibay on 02/13/19 2:34 pm * Is the patient Alert and Oriented? Yes * How many steps to enter\exit or inside your home? * PCP PRIYA * Pharmacy [facility] * Preadmission Environment Home Alone * ADLs Partial Dependent * Partial ADLs (Assistance needed) Bathing * Equipment Elevated [place] Seat Rolling Walker Shower Chair * List name and contact numbers for known caregivers / representatives who currently or will assist patient after discharge: MICHELLE (BROTHER) [phone] * Verbal permission to speak to the caregivers and representatives has been obtained from the patient. N/A * Community resources currently utilized Home Health * Please name any agencies selected above. [facility], [facility] TALKING WITH [facility] FOR HELP * Additional services required to return to the preadmission environment? Yes * Can the patient safely return to the preadmission environment? Yes * Has this patient been hospitalized within the prior 30 days at any hospital? Yes Coverage Notice Reviewer: [id number] - Dolores Garibay Notice Issued Date-Time: 02/13/2019 14:15 Notice Type: IM Discharge Notice Notice Delivered To: Patient Relationship to Patient: Cyber Operator Name: Delivery Method: HAND - Hand Delivered Adrianne Days: Prior Verbal Notification: Recipient Understood Notice: Yes Recipient Signature: Yes Med Rec Note Co-signed by Attending: Coverage Notice Comment: Reviewer: [email or web address] Silvia Garibay Notice Issued Date-Time: 02/13/2019 14:15 Notice Type: Patient Choice Letter Notice Delivered To: Patient Relationship to Patient: Cyber Operator Name: Delivery Method: HAND - Hand Delivered Adrianne Days: Prior Verbal Notification: Recipient Understood Notice: Yes Recipient Signature: Yes Med Rec Note Co-signed by Attending: Coverage Notice Comment: SHERICE FOR ASHLEYALBINA Fuentes DP export: 02/14/19 12:05 Patient Name: ALEK GASCA Page [id number] at 1316 All edits/amendments must be made on the electronic document DICTATION DATE: 02/15/19 1316 VETERINARY SCIENCE TEACHER: CONSTANTINE 02/15/19 1316 RPT#: [id number] DC DATE:02/14/19 STATUS: DIS IN [facility] [address] [place], [place] [id number] END OF REPORT
== END 2019-02-14 14:18 | disposition home health service (06) | DRG 418 ==
LOC: D.ER 18:56 → D.MS 22:05
PROVIDERS: Family Medicine; ADMIT Internal Medicine Nephrology; ATTEND Internal Medicine Nephrology
PROC: 0FT44ZZ Resection of Gallbladder, Percutaneous Endoscopic Approach (ICD-10-PCS; principal; 2019-02-10)
PROC: BF13YZZ Fluoroscopy of Gallbladder and Bile Ducts using Other Contrast (ICD-10-PCS; 2019-02-10)
DX: K85.10 Biliary acute pancreatitis without necrosis or infection (principal); K81.0 Acute cholecystitis; E87.0 Hyperosmolality and hypernatremia; G62.9 Polyneuropathy, unspecified; M54.9 Dorsalgia, unspecified; I10 Essential (primary) hypertension; R74.0 Nonspecific elevation of levels of transaminase and lactic acid dehydrogenase [LDH]

== ENCOUNTER → 2020-07-01 08:47 | Outpatient (CLI) | payer MEDICARE ==
[2019-02-12 12:04] VITALS: BMI 19.3
[~2020-07-01 08:47] MED LIST changes: +HYDROCODON-ACE1 EAC7 PO; +STOOL SOFTENER100 M1 PO
== END | disposition home or self-care (01) ==
LOC: D.CT 06-13 09:30
PROVIDERS: ATTEND Family Medicine
DX: J32.9 Chronic sinusitis, unspecified (principal)

== ENCOUNTER → 2020-08-06 10:38 | Outpatient (CLI) | payer MEDICARE ==
[2019-02-12 12:04] VITALS: BMI 19.3
== END | disposition home or self-care (01) ==
LOC: D.HCCECHO 10:30
PROVIDERS: ATTEND Internal Medicine Cardiovascular Disease
DX: I35.0 Nonrheumatic aortic (valve) stenosis (principal)